=== PATIENT | female | born 1955 | race Hispanic/Latino ===

== ENCOUNTER 2018-07-26 19:31 | Emergency (ER) | payer BC, SELFPAY ==
[2018-07-26 20:54] LABS: #Basophils 0.1 thou/uL (0.0-0.2); #Eosinphils 0.2 thou/uL (0.0-0.7); #Lymphocytes 2.8 thou/uL (1.20-3.40); #Monocytes 0.5 thou/uL (0.11-0.59); #Neutrophils 4.5 thou/uL (1.40-6.50); %Basophils 0.9 % (0.0-1.0); %Eosinophils 2.3 % (0.0-10.0); %Lymphocytes 34.7 % (21.0-51.0); %Monocytes 6.6 % (0.0-10.0); %Neutrophils 55.4 % (42.0-75.0); Hemoglobin 13.6 g/dL (12.0-16.0); Mean Corpuscular HGB CONC 33.7 g/dL (32.0-36.0); Mean Corpuscular Hemoglobin 29.5 pg (27.0-31.0); Mean Corpuscular Volume 87.7 fL (78.0-98.0); Mean Platelet Volume 11.6 fL (7.4-10.4); Platelet Count 141 thou/uL (130-400); RBC Distribution Width 11.9 % (11.5-14.5); Red Blood Cell (RBC) Count 4.59 mill/uL (4.20-5.40)
[2018-07-26 21:08] LABS: Bilirubin Negative (Negative); Blood, Urine Moderate (Negative); Clarity CLOUDY (Clear); Glucose, Urine (Dipstick) >=1000 mg/dL (Negative); Leukocyte Large (Negative); Nitrite Positive (Negative); Protein, Urine (Dipstick) Negative (Neg-Trace); Specific Gravity, Urine 1.015 (1.002-1.036)
[2018-07-26 21:10] LABS: Bacteria/HPF 2+ HPF (None Seen); Hyaline Casts/LPF 4-6 HYALINE CAST LPF (0-3 Hyaline); Pathc Cast-AUWi Flag 1.76 (0-2.49); Squamous Epithelial 0-3 HPF (0-3)
[2018-07-26 21:11] LABS: Yeast-AUWi Flag 169.8 (0-25.0)
[2018-07-26 21:16] LABS: ALT (SGPT) 34 U/L (8-55); AST (SGOT) 22 U/L (5-34); Albumin 4.3 g/dL (3.4-4.8); Alkaline Phosphatase 131 U/L (40-150); Anion Gap 12 mmol/L (10-20); BUN (Urea Nitrogen) 10 mg/dL (9.8-20.1); Bilirubin, Total 0.3 mg/dL (0.2-1.2); Calc. Creatinine Clearance 0 mL/min (70-130); Calcium 9.7 mg/dL (7.8-10.44); Carbon Dioxide 28 mmol/L (23-31); Chloride 97 mmol/L (98-107); Estimated GFR-MDRD 70; Globulin 3.5 g/dL (2.4-3.5); Glucose 385 mg/dL (80-115); Potassium 4.2 mmol/L (3.5-5.1); Protein, Total 7.8 g/dL (6.0-8.3); Sodium 133 mmol/L (136-145)
[2018-07-26] MEDS ORDERED: Insulin Regular 300 UNITS/3 ML VIAL ONE (23:11)
[2018-07-26] MEDS ORDERED: Sodium Chloride 0.9% 100 ML ONE (23:13)
[2018-07-26] MEDS ORDERED: cefTRIAXone\\ROCEPHIN 2 GM VIAL ONE (23:13)
== END 2018-07-26 23:58 | disposition home or self-care (01) ==
LOC: ERS 19:31
DX: E11.65 Type 2 diabetes mellitus with hyperglycemia (principal); N39.0 Urinary tract infection, site not specified; E11.9 Type 2 diabetes mellitus without complications; Z91.19 Patient's noncompliance with other medical treatment and regimen; Z79.84 Long term (current) use of oral hypoglycemic drugs; Z79.899 Other long term (current) drug therapy
CPT/HCPCS: 36415; 36416; 80053; 81003; 81015; 82010; 85025; 87077; 87086; 87186; 96365; 96375; J0696; J1815; J7050

== ENCOUNTER 2021-03-16 17:41 | Observation (INO) | payer MEDICARE ==
[2021-03-16] MEDS ORDERED: Ondansetron PF 4 MG/2 ML Vial ONE (17:45)
[2021-03-16 18:22] LABS: #Basophils 0.1 thou/uL (0.0-0.2); #Eosinphils 0.1 thou/uL (0.0-0.7); #Lymphocytes 4.5 thou/uL (1.20-3.40); #Monocytes 0.5 thou/uL (0.11-0.59); #Neutrophils 5.1 thou/uL (1.40-6.50); %Basophils 1.1 % (0.0-1.0); %Eosinophils 1.4 % (0.0-10.0); %Lymphocytes 43.3 % (21.0-51.0); %Monocytes 4.6 % (0.0-10.0); %Neutrophils 49.6 % (42.0-75.0); Mean Corpuscular HGB CONC 34.8 g/dL (32.0-36.0); Mean Corpuscular Hemoglobin 31.9 pg (27.0-31.0); Mean Corpuscular Volume 91.7 fL (78.0-98.0); Mean Platelet Volume 10.9 fL (7.4-10.4); Platelet Count 126 thou/uL (130-400); RBC Distribution Width 12.5 % (11.5-14.5); Red Blood Cell (RBC) Count 4.69 mill/uL (4.20-5.40); White Blood Cell (WBC) Count 10.3 thou/uL (4.8-10.8)
[2021-03-16 18:30] LABS: INR-International Normal Ratio 0.9; Prothrombin Time 12.6 sec (12.0-14.7)
[2021-03-16 18:31] LABS: PTT 34.5 sec (22.9-36.1)
[2021-03-16 18:39] LABS: ALT (SGPT) 27 U/L (8-55); AST (SGOT) 22 U/L (5-34); Acetaminophen Less than 6.0 mcg/mL (10.0-30.0); Albumin 4.4 g/dL (3.4-4.8); Alcohol Less than 10 mg/dL (Less than 10); Alkaline Phosphatase 105 U/L (40-110); Anion Gap 20 mmol/L (10-20); BUN (Urea Nitrogen) 11 mg/dL (9.8-20.1); Bilirubin, Total 0.3 mg/dL (0.2-1.2); CK (CPK) 35 U/L (29-168); Calc. Creatinine Clearance 0 mL/min (70-130); Calcium 9.6 mg/dL (7.8-10.44); Carbon Dioxide 17 mmol/L (23-31); Chloride 103 mmol/L (98-107); Globulin 3.2 g/dL (2.4-3.5); Glucose 228 mg/dL (80-115); Lipase 34 U/L (8-78); Magnesium 1.7 mg/dL (1.6-2.6); Potassium 3.8 mmol/L (3.5-5.1); Protein, Total 7.6 g/dL (5.8-8.1); Salicylate Less than 8.0 mg/dL (15.0-30.0); Sodium 136 mmol/L (136-145)
[2021-03-16] MEDS ORDERED: Acetaminophen 500 MG TAB ONE (19:53)
[2021-03-16] MEDS ORDERED: Ondansetron ODT 4 MG TAB PO PRN (21:23)
[2021-03-16] MEDS ORDERED: Acetaminophen 325 MG TAB PO PRN (21:23)
[2021-03-16] MEDS ORDERED: Ondansetron PF 4 MG/2 ML Vial IVP PRN (21:23)
[2021-03-16] MEDS ORDERED: Dextrose 50% Abboject 50 ML SYRINGE SLOW IVP PRN (21:25)
[2021-03-16] MEDS ORDERED: hydrALAZINE 20 MG/ML VIAL SLOW IVP PRN (21:25)
[2021-03-16] MEDS ORDERED: HumaLOG 300 UNITS/3 ML VIAL SC PRN (21:25)
[2021-03-16] MEDS ORDERED: Dextrose 5% in Water 1,000 ML IV PRN (21:25)
[2021-03-16] MEDS ORDERED: Enoxaparin Sodium 40 MG/0.4 ML SYRINGE SC SCH (21:30)
[2021-03-16] MEDS ORDERED: Electrolyte Replacement Protocol 1 EACH FS SCH (21:30)
[2021-03-16] MEDS ORDERED: Lorazepam 2 MG/ML VIAL SLOW IVP PRN (21:30)
[2021-03-16 22:00] LABS: Lactic Acid 2.1 mmol/L (0.5-2.2)
[2021-03-16 22:07] LABS: Troponin I Less than 0.010 ng/mL (< 0.028)
[2021-03-16] MEDS: Sodium Chloride 0.9% 1,000 ML IV SCH (22:27)
[2021-03-16] MEDS ORDERED: Magnesium 2 GM/50 ML 2 GM in Premix Bag 1 BAG IVPB SCH (22:30)
[2021-03-16 22:32] VITALS: BMI 32.4
[2021-03-17 01:28] LABS: Troponin I Less than 0.010 ng/mL (< 0.028)
[2021-03-17 06:08] LABS: #Eosinphils 0.1 thou/uL (0.0-0.7); #Lymphocytes 2.3 thou/uL (1.20-3.40); #Monocytes 0.5 thou/uL (0.11-0.59); %Basophils 0.5 % (0.0-1.0); %Eosinophils 1.5 % (0.0-10.0); %Lymphocytes 28.6 % (21.0-51.0); %Monocytes 6.2 % (0.0-10.0); %Neutrophils 63.1 % (42.0-75.0); Hemoglobin 12.6 g/dL (12.0-16.0); Mean Corpuscular HGB CONC 34.5 g/dL (32.0-36.0); Mean Corpuscular Hemoglobin 31.4 pg (27.0-31.0); Mean Corpuscular Volume 91.1 fL (78.0-98.0); Mean Platelet Volume 11.1 fL (7.4-10.4); Platelet Count 143 thou/uL (130-400); RBC Distribution Width 12.5 % (11.5-14.5); White Blood Cell (WBC) Count 7.9 thou/uL (4.8-10.8)
[2021-03-17 06:25] LABS: Lactic Acid 1.2 mmol/L (0.5-2.2)
[2021-03-17 06:30] LABS: Hemoglobin A1c 8.4 % (4.0-6.0)
[2021-03-17 06:33] LABS: Anion Gap 12 mmol/L (10-20); BUN (Urea Nitrogen) 12 mg/dL (9.8-20.1); Calc. Creatinine Clearance 95 mL/min (70-130); Calcium 9.4 mg/dL (7.8-10.44); Carbon Dioxide 23 mmol/L (23-31); Cardiac Risk 7.6 (Less than 4.5); Chloride 103 mmol/L (98-107); Cholesterol 258 mg/dl (< 200 Desired); Glucose 199 mg/dL (80-115); HDL Cholesterol 34 mg/dL (>60 Neg Risk); Potassium 3.9 mmol/L (3.5-5.1); Sodium 134 mmol/L (136-145); Triglycerides 695 mg/dL (Less than 150)
[2021-03-17] MEDS: HumaLOG 300 UNITS/3 ML VIAL SC PRN ×3 (06:35→17:05)
[2021-03-17] MEDS ORDERED: Magnesium 2 GM/50 ML 2 GM in Premix Bag 1 BAG IVPB SCH (08:00)
[2021-03-17] MEDS ORDERED: Enoxaparin Sodium 40 MG/0.4 ML SYRINGE SC SCH (09:00)
[2021-03-17] MEDS: Sodium Chloride 0.9% 1,000 ML IV SCH ×2 (10:00→18:35)
[2021-03-17 14:28] LABS: SARS-CoV-2 PCR by NAA Not Detected (NotDetected)
[2021-03-17 15:57] VITALS: BP 143/77; TEMP 98.8
[2021-03-17] MEDS ORDERED: Fish Oil 1,000 MG CAP PO SCH (21:00)
[2021-03-19] MEDS ORDERED: FLU VACC QS2021-22(65YR UP)/PF 240 MCG/0.7 ML SYRINGE IM ONE (09:00)
== END 2021-03-17 19:15 | disposition home or self-care (01) ==
LOC: ERS 17:41 → NEURO 20:19
PROVIDERS: ADMIT Internal Medicine; ATTEND Internal Medicine
DX: R55 Syncope and collapse (principal); E11.65 Type 2 diabetes mellitus with hyperglycemia; E87.1 Hypo-osmolality and hyponatremia; I07.1 Rheumatic tricuspid insufficiency; R11.2 Nausea with vomiting, unspecified; M25.522 Pain in left elbow; M25.532 Pain in left wrist; I10 Essential (primary) hypertension; E78.5 Hyperlipidemia, unspecified; R12 Heartburn; Z20.822 Contact with and (suspected) exposure to COVID-19; Z79.84 Long term (current) use of oral hypoglycemic drugs; Z79.899 Other long term (current) drug therapy; R13.19 Other dysphagia
CPT/HCPCS: 70450; 70551; 71045; 73080; 73110; 80048; 80053; 80061; 80307; 82550; 82962 ×2; 83036; 83605 ×2; 83690; 83735 ×2; 84484 ×3; 85025 ×2; 85610; 85730; 93005; 93306; 96374; 97139 ×2; 99285; U0003; U0005; 36415; 36416; J1650; J1815; J2405; J3475

== ENCOUNTER 2021-04-23 13:17 | Outpatient (CLI) | payer MEDICARE | END 2021-04-23 13:18 | disposition home or self-care (01) | LOC: BICMAMMO 13:17 | PROVIDERS: ATTEND Family Medicine | DX: Z12.31 Encounter for screening mammogram for malignant neoplasm of breast (principal) | CPT/HCPCS: 77063; 77067 ==

== ENCOUNTER 2021-10-01 18:49 | Outpatient (CLI) | payer MEDICARE | END 2021-10-01 18:50 | disposition home or self-care (01) | LOC: RAD 18:49 | PROVIDERS: ATTEND Internal Medicine | DX: R10.9 Unspecified abdominal pain (principal); Z90.49 Acquired absence of other specified parts of digestive tract | CPT/HCPCS: 74019 ==

== ENCOUNTER 2021-10-04 08:30 | Outpatient (CLI) | payer MEDICARE | END 2021-10-04 08:31 | disposition home or self-care (01) | LOC: ULT 08:30 | PROVIDERS: ATTEND Internal Medicine | DX: R10.9 Unspecified abdominal pain (principal); R31.9 Hematuria, unspecified; N28.89 Other specified disorders of kidney and ureter; Z90.49 Acquired absence of other specified parts of digestive tract | CPT/HCPCS: 76700 ==

== ENCOUNTER 2021-11-12 08:25 | Outpatient (CLI) | payer MEDICARE ==
[2021-11-12] MEDS ORDERED: Iopamidol-370 76% 500 ML 1 ML ONE (09:33)
== END 2021-11-12 08:26 | disposition home or self-care (01) ==
LOC: BICCT 08:25
PROVIDERS: ATTEND Urology
DX: N28.89 Other specified disorders of kidney and ureter (principal); R91.8 Other nonspecific abnormal finding of lung field; Z87.448 Personal history of other diseases of urinary system
CPT/HCPCS: 74178; 82565; Q9967

== ENCOUNTER 2021-12-02 07:22 | Outpatient (CLI) | payer MEDICARE ==
[2021-12-02] MEDS ORDERED: Iopamidol 370 76% 100 ML VIAL ONE (09:08)
== END 2021-12-02 07:23 | disposition home or self-care (01) ==
LOC: CT 07:22
PROVIDERS: ATTEND Urology
DX: N28.89 Other specified disorders of kidney and ureter (principal); R91.8 Other nonspecific abnormal finding of lung field; R59.0 Localized enlarged lymph nodes
CPT/HCPCS: 71260; Q9967

== ENCOUNTER 2021-12-16 09:00 | Outpatient (CLI) | payer MEDICARE | END 2021-12-16 09:01 | disposition home or self-care (01) | LOC: NM 09:00 | PROVIDERS: ATTEND Urology | DX: N28.89 Other specified disorders of kidney and ureter (principal); C64.1 Malignant neoplasm of right kidney, except renal pelvis; R16.0 Hepatomegaly, not elsewhere classified | CPT/HCPCS: 74183; 78306; A9503 ==

== ENCOUNTER 2022-01-02 12:30 | Outpatient (CLI) | payer MEDICARE | END 2022-01-02 12:31 | disposition home or self-care (01) | LOC: PET 12:30 | PROVIDERS: ATTEND Internal Medicine Hematology & Oncology | DX: C64.1 Malignant neoplasm of right kidney, except renal pelvis (principal); C78.1 Secondary malignant neoplasm of mediastinum | CPT/HCPCS: 78815; 81001; 87086; A9552 ==

== ENCOUNTER 2022-01-03 08:59 | Outpatient (CLI) | payer MEDICARE | END 2022-01-03 09:00 | disposition home or self-care (01) | LOC: LABBT 08:59 | PROVIDERS: ATTEND Urology | DX: Z01.818 Encounter for other preprocedural examination (principal); Z20.822 Contact with and (suspected) exposure to COVID-19 | CPT/HCPCS: 80048; 85027; 85610; 85730; 86850; 86900; 86901; 87811; 93005; 93010 ==

== ENCOUNTER 2022-01-08 06:04 | Day surgery (SDC) | payer MEDICARE ==
[2022-01-03 11:12] LABS: Mean Corpuscular HGB CONC 33.4 g/dL (32.0-36.0); Mean Corpuscular Hemoglobin 28.8 pg (27.0-33.0); Mean Corpuscular Volume 86.1 fl (81.6-98.3); Platelet Count 132 10x3/uL (150-450); RBC Distribution Width 14.1 % (11.5-14.5); Red Blood Cell (RBC) Count 4.52 10x6/uL (3.90-5.03); White Blood Cell (WBC) Count 4.5 10x3/uL (3.5-10.5)
[2022-01-03 11:36] LABS: Anion Gap 14 mmol/L (10-20); BUN (Urea Nitrogen) 14 mg/dL (9.8-20.1); Calc. Creatinine Clearance 0 mL/min (70-130); Calcium 10.3 mg/dL (7.8-10.44); Carbon Dioxide 26 mmol/L (23-31); Chloride 103 mmol/L (98-107); Estimated GFR 66; Glucose 246 mg/dL (80-115); PTT 32.5 sec (22.0-33.0); Potassium 4.9 mmol/L (3.5-5.1); Prothrombin Time 10.8 sec (9.5-12.1); Sodium 138 mmol/L (136-145)
[2022-01-03 12:39] VITALS: BMI 32.0
[2022-01-08] MEDS ORDERED: SUGAMMADEX SODIUM 200 MG/2 ML VIAL ONE (08:13)
[2022-01-08] MEDS ORDERED: Fentanyl 100 MCG/2 ML VIAL ONE ×2 (08:13→09:53)
[2022-01-08] MEDS ORDERED: Levofloxacin 500 mg/D5W 100 ml Premix Bag ONE (08:24)
[2022-01-08] MEDS ORDERED: Ondansetron PF 4 MG/2 ML Vial ONE (08:29)
[2022-01-08] MEDS ORDERED: Rocuronium Bromide 10 MG/ML (10ML VIAL) ONE (08:29)
[2022-01-08] MEDS ORDERED: PROPOFOL 200 MG/20 ML VIAL ONE (08:29)
[2022-01-08] MEDS ORDERED: NEOSTIGMINE 3 MG/3 ML SYR 3 MG/3 ML SYRINGE ONE (08:29)
[2022-01-08] MEDS ORDERED: Dexamethasone 20 MG/5 ML VIAL ONE (08:29)
[2022-01-08] MEDS ORDERED: Glycopyrrolate 0.2 MG/ML 5 ML SYRINGE ONE (08:29)
[2022-01-08] MEDS ORDERED: Lidocaine 1% MPF 2 ML VIAL ONE (08:29)
[2022-01-08] MEDS ORDERED: Oxybutynin 5 MG TAB ONE (09:07)
[2022-01-08] MEDS ORDERED: Phenazopyridine HCl 100 MG TAB ONE (09:07)
== END 2022-01-08 12:00 | disposition home or self-care (01) ==
LOC: SDC 06:04
PROVIDERS: ATTEND Urology
PROC: 0TBB8ZX Excision of Bladder, Via Natural or Artificial Opening Endoscopic, Diagnostic (ICD-10-PCS; principal; 2022-01-08)
DX: D09.0 Carcinoma in situ of bladder (principal); R91.8 Other nonspecific abnormal finding of lung field; N35.92 Unspecified urethral stricture, female; I10 Essential (primary) hypertension; E11.9 Type 2 diabetes mellitus without complications; E03.9 Hypothyroidism, unspecified; Z86.73 Personal history of transient ischemic attack (TIA), and cerebral infarction without residual deficits; Z87.440 Personal history of urinary (tract) infections; Z87.442 Personal history of urinary calculi; Z79.84 Long term (current) use of oral hypoglycemic drugs; Z79.899 Other long term (current) drug therapy; Z20.822 Contact with and (suspected) exposure to COVID-19
CPT/HCPCS: 80048; 85027; 85610; 85730; 86850; 86900; 86901; 87811; 88305; J1100; J1956; J2405; J2704; J3010

== ENCOUNTER → 2022-01-23 | Day surgery (SDC) | payer MEDICARE ==
[2022-01-22 14:58] VITALS: BMI 32.0
== END | disposition home or self-care (01) ==
LOC: CT 08:56
PROVIDERS: ATTEND Internal Medicine Hematology & Oncology
PROC: 0TB03ZX Excision of Right Kidney, Percutaneous Approach, Diagnostic (ICD-10-PCS; principal; 2022-01-23)
DX: N26.9 Renal sclerosis, unspecified (principal); N28.89 Other specified disorders of kidney and ureter; R91.8 Other nonspecific abnormal finding of lung field; R59.0 Localized enlarged lymph nodes; E11.9 Type 2 diabetes mellitus without complications; E03.9 Hypothyroidism, unspecified; I10 Essential (primary) hypertension; Z86.73 Personal history of transient ischemic attack (TIA), and cerebral infarction without residual deficits
CPT/HCPCS: 50200; 74150; 77012; 88305; 88323; 88333; 88334; J2001; J2250; J3010

== ENCOUNTER 2022-02-06 09:51 | Outpatient (CLI) | payer OTHER | END 2022-02-06 09:52 | disposition home or self-care (01) | LOC: LABBT 09:51 | PROVIDERS: ATTEND Internal Medicine Hematology & Oncology | DX: Z20.822 Contact with and (suspected) exposure to COVID-19 (principal) | CPT/HCPCS: 87811 ==

== ENCOUNTER 2022-02-10 08:25 | Day surgery (SDC) | payer MEDICARE ==
[2022-02-06 14:03] VITALS: BMI 32.0
[2022-02-10 11:14] VITALS: BP 128/69; TEMP 97.6
== END 2022-02-10 13:40 | disposition home or self-care (01) ==
LOC: CT 08:25
PROVIDERS: ATTEND Internal Medicine Hematology & Oncology
PROC: 0TB03ZX Excision of Right Kidney, Percutaneous Approach, Diagnostic (ICD-10-PCS; principal; 2022-02-10)
DX: C64.1 Malignant neoplasm of right kidney, except renal pelvis (principal); E11.9 Type 2 diabetes mellitus without complications; Z86.73 Personal history of transient ischemic attack (TIA), and cerebral infarction without residual deficits; Z79.84 Long term (current) use of oral hypoglycemic drugs; Z79.890 Hormone replacement therapy; Z79.899 Other long term (current) drug therapy
CPT/HCPCS: 50200; 77002; 88305; 88333; 88334; 88341; 88342

== ENCOUNTER 2022-07-17 10:57 | Outpatient (CLI) | payer MEDICARE ==
[2022-07-17 12:01] LABS: Hemoglobin 12.2 g/dL (12.0-15.5); Mean Corpuscular HGB CONC 31.9 g/dL (32.0-36.0); Mean Corpuscular Hemoglobin 28.8 pg (27.0-33.0); Mean Corpuscular Volume 90.1 fl (81.6-98.3); Mean Platelet Volume 12.4 fl (7.4-10.4); Platelet Count 164 10x3/uL (150-450); RBC Distribution Width 16.4 % (11.5-14.5); Red Blood Cell (RBC) Count 4.24 10x6/uL (3.90-5.03); White Blood Cell (WBC) Count 4.9 10x3/uL (3.5-10.5)
[2022-07-17 12:15] LABS: Anion Gap 13 mmol/L (10-20); BUN (Urea Nitrogen) 17 mg/dL (9.8-20.1); Calc. Creatinine Clearance 0 mL/min (70-130); Calcium 9.1 mg/dL (7.8-10.44); Carbon Dioxide 26 mmol/L (23-31); Chloride 104 mmol/L (98-107); Estimated GFR 59; Glucose 124 mg/dL (80-115); PTT 31.9 sec (22.0-33.0); Potassium 4.7 mmol/L (3.5-5.1); Prothrombin Time 10.7 sec (9.5-12.1); Sodium 138 mmol/L (136-145)
== END 2022-07-17 10:58 | disposition home or self-care (01) ==
LOC: LABBT 10:57
PROVIDERS: ATTEND Urology
DX: Z01.818 Encounter for other preprocedural examination (principal); C64.1 Malignant neoplasm of right kidney, except renal pelvis; E11.9 Type 2 diabetes mellitus without complications; I10 Essential (primary) hypertension; R81 Glycosuria; R35.0 Frequency of micturition; R91.1 Solitary pulmonary nodule; C67.9 Malignant neoplasm of bladder, unspecified; Z87.442 Personal history of urinary calculi; Z86.73 Personal history of transient ischemic attack (TIA), and cerebral infarction without residual deficits; Z87.448 Personal history of other diseases of urinary system; Z87.440 Personal history of urinary (tract) infections
CPT/HCPCS: 80048; 81001; 85027; 85610; 85730; 87077; 87086; 87186; 93005; 93010

== ENCOUNTER 2022-07-30 06:30 | Day surgery (SDC) | payer MEDICARE ==
[2022-07-28 15:57] VITALS: BMI 30.1
[2022-07-30] MEDS ORDERED: mitoMYcin 40 MG in Sodium Chloride 0.9% 40 ML I-VESIC SCH (07:30)
[2022-07-30] MEDS ORDERED: Sodium Chloride 0.9% 100 ML ONE (07:46)
[2022-07-30] MEDS ORDERED: Levofloxacin 500 mg/D5W 100 ml Premix Bag ONE (07:46)
[2022-07-30] MEDS ORDERED: Ampicillin 2 GM VIAL ONE (07:46)
[2022-07-30] MEDS ORDERED: FENTANYL 50 MCG/ML 1 ML VIAL ONE (08:03)
[2022-07-30] MEDS ORDERED: Lidocaine 1% PF 5 ML VIAL ONE (08:18)
[2022-07-30] MEDS ORDERED: NEOSTIGMINE 3 MG/3 ML SYR 3 MG/3 ML SYRINGE ONE (08:18)
[2022-07-30] MEDS ORDERED: Ondansetron PF 4 MG/2 ML Vial ONE (08:18)
[2022-07-30] MEDS ORDERED: Dexamethasone 20 MG/5 ML VIAL ONE (08:18)
[2022-07-30] MEDS ORDERED: PROPOFOL 200 MG/20 ML VIAL ONE (08:18)
[2022-07-30] MEDS ORDERED: Rocuronium Bromide 10 MG/ML (10ML VIAL) ONE (08:18)
[2022-07-30] MEDS ORDERED: GLYCOPYRROLATE/PF 0.2 MG/ML VIAL ONE (08:18)
[2022-07-30] MEDS ORDERED: ePHEDrine Sulfate 50 MG/10 ML VIAL ONE (08:18)
[2022-07-30] MEDS ORDERED: Phenylephrine 10 MG/ML VIAL ONE (08:18)
[2022-07-30] MEDS ORDERED: Phenazopyridine HCl 100 MG TAB ONE (09:44)
[2022-07-30] MEDS ORDERED: Oxybutynin 5 MG TAB ONE (09:44)
[2022-07-30] MEDS ORDERED: HYDROcodone/Acetaminophen 5/325 mg Tablet ONE (11:48)
== END 2022-07-30 12:15 | disposition home or self-care (01) ==
LOC: SDC 06:30
PROVIDERS: ATTEND Urology
PROC: 0T5B8ZZ Destruction of Bladder, Via Natural or Artificial Opening Endoscopic (ICD-10-PCS; principal; 2022-07-30)
PROC: 0T768DZ Dilation of Right Ureter with Intraluminal Device, Via Natural or Artificial Opening Endoscopic (ICD-10-PCS; 2022-07-30)
PROC: 3E0K805 Introduction of Other Antineoplastic into Genitourinary Tract, Via Natural or Artificial Opening Endoscopic (ICD-10-PCS; 2022-07-30)
DX: D09.0 Carcinoma in situ of bladder (principal); C64.1 Malignant neoplasm of right kidney, except renal pelvis; C78.00 Secondary malignant neoplasm of unspecified lung; I10 Essential (primary) hypertension; E11.9 Type 2 diabetes mellitus without complications; E03.9 Hypothyroidism, unspecified; Z86.73 Personal history of transient ischemic attack (TIA), and cerebral infarction without residual deficits; Z87.440 Personal history of urinary (tract) infections; Z87.442 Personal history of urinary calculi; Z79.84 Long term (current) use of oral hypoglycemic drugs; Z79.85 Long-term (current) use of injectable non-insulin antidiabetic drugs; Z79.890 Hormone replacement therapy; Z79.899 Other long term (current) drug therapy
CPT/HCPCS: 51720; 52234; 52332; 74420; 86850; 86900; 86901; J3010; J9280; 88305; C2617; J0290; J1100; J1956; J2370; J2405; J2704; J3490

== ENCOUNTER 2022-09-08 12:00 | Outpatient (CLI) | payer MEDICARE, OTHER ==
[~2022-09-08 12:00] MED LIST: Iopamidol 370 76% 100 ML VIAL ONE
== END 2022-09-08 12:01 | disposition home or self-care (01) ==
LOC: CT 12:00
PROVIDERS: ATTEND Internal Medicine Hematology & Oncology
DX: C64.1 Malignant neoplasm of right kidney, except renal pelvis (principal); N28.1 Cyst of kidney, acquired
CPT/HCPCS: 71260; 74177; Q9967

== ENCOUNTER 2022-11-05 06:59 | Day surgery (SDC) | payer MEDICARE ==
[2022-10-29 12:00] VITALS: BMI 30.9
[2022-11-05] MEDS ORDERED: Sodium Chloride 0.9% 100 ML ONE (08:16)
[2022-11-05] MEDS ORDERED: cefTRIAXone (ROCEPHIN) 2 GM VIAL ONE (08:16)
[2022-11-05] MEDS ORDERED: Iopamidol 30 ML ONE (08:22)
[2022-11-05] MEDS ORDERED: Fentanyl 250 MCG/5 ML VIAL ONE (08:26)
[2022-11-05] MEDS ORDERED: SUGAMMADEX SODIUM 200 MG/2 ML VIAL ONE (08:26)
[2022-11-05] MEDS ORDERED: PHENYLEPHRINE-NS 100 MCG/ML 10 ML SYRINGE ONE (08:47)
[2022-11-05] MEDS ORDERED: ePHEDrine Sulfate 50 MG/10 ML VIAL ONE (08:47)
[2022-11-05] MEDS ORDERED: PROPOFOL 200 MG/20 ML VIAL ONE (08:47)
[2022-11-05] MEDS ORDERED: Rocuronium Bromide 10 MG/ML (10ML VIAL) ONE (08:47)
[2022-11-05] MEDS ORDERED: Lidocaine 1% PF 5 ML VIAL ONE (08:47)
[2022-11-05] MEDS ORDERED: Phenazopyridine HCl 100 MG TAB ONE (10:03)
[2022-11-05] MEDS ORDERED: Oxybutynin 5 MG TAB ONE (10:03)
== END 2022-11-05 12:30 | disposition home or self-care (01) ==
LOC: SDC 06:59
PROVIDERS: ATTEND Urology
PROC: 0TBB8ZX Excision of Bladder, Via Natural or Artificial Opening Endoscopic, Diagnostic (ICD-10-PCS; principal; 2022-11-05)
PROC: 0T768DZ Dilation of Right Ureter with Intraluminal Device, Via Natural or Artificial Opening Endoscopic (ICD-10-PCS; 2022-11-05)
PROC: BT1DZZZ Fluoroscopy of Right Kidney, Ureter and Bladder (ICD-10-PCS; 2022-11-05)
DX: C64.1 Malignant neoplasm of right kidney, except renal pelvis (principal); D09.0 Carcinoma in situ of bladder; C67.9 Malignant neoplasm of bladder, unspecified; N32.89 Other specified disorders of bladder; N39.0 Urinary tract infection, site not specified; E11.9 Type 2 diabetes mellitus without complications; I10 Essential (primary) hypertension; E78.00 Pure hypercholesterolemia, unspecified; R81 Glycosuria; N13.5 Crossing vessel and stricture of ureter without hydronephrosis; E03.9 Hypothyroidism, unspecified; Z90.49 Acquired absence of other specified parts of digestive tract; Z87.442 Personal history of urinary calculi; Z86.73 Personal history of transient ischemic attack (TIA), and cerebral infarction without residual deficits; Z79.899 Other long term (current) drug therapy; Z79.84 Long term (current) use of oral hypoglycemic drugs; Z79.890 Hormone replacement therapy
CPT/HCPCS: 36415; 74420; 86850; 86900; 86901; 88305; C2617; J0696; J2704; J3010; J3490; Q9967

== ENCOUNTER 2022-12-03 08:14 | Outpatient (CLI) | payer MEDICARE ==
[2022-12-03] MEDS ORDERED: Iopamidol 370 76% 100 ML VIAL ONE (08:45)
== END 2022-12-03 08:15 | disposition home or self-care (01) ==
LOC: CT 08:14
PROVIDERS: ATTEND Internal Medicine Hematology & Oncology
DX: C64.1 Malignant neoplasm of right kidney, except renal pelvis (principal); N28.1 Cyst of kidney, acquired
CPT/HCPCS: 71260; 74177; Q9967

== ENCOUNTER 2023-02-04 07:32 | Day surgery (SDC) | payer MEDICARE ==
[2023-01-23 09:56] VITALS: BMI 30.1
[~2023-02-04 07:32] MED LIST changes: -Iopamidol 370 76% 100 ML VIAL ONE; +mitoMYcin 40 MG in Sodium Chloride 0.9% 40 ML I-VESIC SCH
[2023-02-04] MEDS ORDERED: cefTRIAXone (ROCEPHIN) 2 GM VIAL ONE (08:55)
[2023-02-04] MEDS ORDERED: Sodium Chloride 0.9% 100 ML ONE (08:55)
[2023-02-04] MEDS ORDERED: Iopamidol 15 ML ONE (09:07)
[2023-02-04] MEDS ORDERED: PROPOFOL 200 MG/20 ML VIAL ONE (09:29)
[2023-02-04] MEDS ORDERED: PHENYLEPHRINE-NS 100 MCG/ML 10 ML SYRINGE ONE (09:29)
[2023-02-04] MEDS ORDERED: Rocuronium Bromide 10 MG/ML (10ML VIAL) ONE (09:29)
[2023-02-04] MEDS ORDERED: Ondansetron PF 4 MG/2 ML Vial ONE (09:29)
[2023-02-04] MEDS ORDERED: ePHEDrine Sulfate 50 MG/10 ML VIAL ONE (09:29)
[2023-02-04] MEDS ORDERED: NEOSTIGMINE 3 MG/3 ML SYR 3 MG/3 ML SYRINGE ONE (09:29)
[2023-02-04] MEDS ORDERED: Glycopyrrolate 0.2 MG/ML 5 ML SYRINGE ONE (09:29)
[2023-02-04] MEDS ORDERED: Dexamethasone 20 MG/5 ML VIAL ONE (09:29)
[2023-02-04] MEDS ORDERED: Lidocaine 1% PF 5 ML VIAL ONE (09:29)
[2023-02-04] MEDS ORDERED: fentaNYL 50 mcg/mL 1 mL Vial ONE ×3 (10:36→11:30)
[2023-02-04] MEDS ORDERED: Promethazine HCl 25 MG/ML VIAL ONE (10:37)
[2023-02-04] MEDS ORDERED: Hyoscyamine SL 0.125 MG TAB ONE (11:18)
[2023-02-04] MEDS ORDERED: SUGAMMADEX SODIUM 200 MG/2 ML VIAL ONE (11:30)
[2023-02-04] MEDS ORDERED: Famotidine/PF 20 mg/2ml Vial ONE (11:30)
[2023-02-04] MEDS ORDERED: Phenazopyridine HCl 100 MG TAB ONE (12:57)
== END 2023-02-04 12:45 | disposition home or self-care (01) ==
LOC: SDC 07:32
PROVIDERS: ATTEND Urology
PROC: 0TBB8ZZ Excision of Bladder, Via Natural or Artificial Opening Endoscopic (ICD-10-PCS; principal; 2023-02-04)
PROC: 0T768DZ Dilation of Right Ureter with Intraluminal Device, Via Natural or Artificial Opening Endoscopic (ICD-10-PCS; 2023-02-04)
DX: D09.0 Carcinoma in situ of bladder (principal); C64.1 Malignant neoplasm of right kidney, except renal pelvis; R81 Glycosuria; N13.5 Crossing vessel and stricture of ureter without hydronephrosis; C67.9 Malignant neoplasm of bladder, unspecified; Q64.39 Other atresia and stenosis of urethra and bladder neck; E11.9 Type 2 diabetes mellitus without complications; R91.1 Solitary pulmonary nodule; I10 Essential (primary) hypertension; E03.9 Hypothyroidism, unspecified; Z86.73 Personal history of transient ischemic attack (TIA), and cerebral infarction without residual deficits; Z79.890 Hormone replacement therapy; Z79.899 Other long term (current) drug therapy; Z79.84 Long term (current) use of oral hypoglycemic drugs; Z87.442 Personal history of urinary calculi; Z87.440 Personal history of urinary (tract) infections
CPT/HCPCS: 52235; 52332; 74420; 82962; 86850; 86900; 86901; 86920; A4311; C2617; J3010; J9280; 36416; 88305; J0696; J1100; J2405; J2550; J2704; J3490; Q9967; S0028

== ENCOUNTER 2023-06-18 08:58 | Outpatient (CLI) | payer MEDICARE | END 2023-06-18 08:59 | disposition home or self-care (01) | LOC: BICCT 08:58 | PROVIDERS: ATTEND Internal Medicine Hematology & Oncology | DX: C64.1 Malignant neoplasm of right kidney, except renal pelvis (principal); R91.8 Other nonspecific abnormal finding of lung field; K76.0 Fatty (change of) liver, not elsewhere classified; K57.30 Diverticulosis of large intestine without perforation or abscess without bleeding; N26.1 Atrophy of kidney (terminal); N28.89 Other specified disorders of kidney and ureter | CPT/HCPCS: 71260; 74177 ==

== ENCOUNTER 2024-12-07 09:27 | Outpatient (CLI) | payer OTHER ==
[2024-12-07] MEDS ORDERED: Iopamidol 370 76% 100 ML VIAL ONE (09:57)
== END 2024-12-07 09:28 | disposition home or self-care (01) ==
LOC: CT 09:27
PROVIDERS: ATTEND Nurse Practitioner Family
DX: C64.1 Malignant neoplasm of right kidney, except renal pelvis (principal); C67.0 Malignant neoplasm of trigone of bladder; D50.8 Other iron deficiency anemias; N32.89 Other specified disorders of bladder; Z79.899 Other long term (current) drug therapy
CPT/HCPCS: 70470; 71260; 74177; Q9967

== ENCOUNTER 2025-03-27 09:06 | Outpatient (CLI) | payer OTHER | END 2025-03-27 09:07 | disposition home or self-care (01) | LOC: CT 09:06 | PROVIDERS: ATTEND Internal Medicine Hematology & Oncology | DX: D50.8 Other iron deficiency anemias (principal); C64.1 Malignant neoplasm of right kidney, except renal pelvis; C67.0 Malignant neoplasm of trigone of bladder; N32.89 Other specified disorders of bladder; N28.89 Other specified disorders of kidney and ureter; Z79.899 Other long term (current) drug therapy | CPT/HCPCS: 71260; 74177 ==